=== PATIENT | female | born 1990 | race Two or more races ===

== ENCOUNTER → 2020-08-09 11:59 | Outpatient (BNVA) | payer OTHER, SELFPAY | PROVIDERS: Visit Provider Physician Assistant | DX: E66.9 Obesity, unspecified (principal); Z98.84 Bariatric surgery status | CPT/HCPCS: 99212 ==

== ENCOUNTER 2020-08-16 09:58 | Outpatient (REF) | payer OTHER, SELFPAY ==
[2020-08-16 11:19] LABS: MANUAL DIFF FLAG NO
[2020-08-16 11:33] LABS: Estimated Average Glucose 97 mg/dL
[2020-08-16 11:36] LABS: Basophils Percent Auto 0.7 % (0-2); Eosinophils Absolute Auto 0.1 X10*3/uL (0.0-0.4); Eosinophils Percent Auto 1.6 % (0-4); Hematocrit 38.9 % (37-47); Hemoglobin 12.7 g/dl (12.0-16.0); Imm Gran Abs Auto 0.01 X10*3/uL (0.00-0.03); Imm Gran Pct Auto 0.2 % (0.0-0.4); Lymphocytes Percent Auto 33.5 % (20-40); Mean Corpuscular HGB Conc 32.6 g/dl (31.0-35.0); Mean Corpuscular Hemoglobin 30.2 pg (27.0-33.0); Mean Corpuscular Volume 92.6 fL (80-98); Mean Platelet Volume 11.7 fL (9.4-12.3); Monocytes Absolute Auto 0.3 X10*3/uL (0.1-1.2); Monocytes Percent Auto 5.3 % (2-11); Neutrophils Absolute Auto 3.6 X10*3/uL (2.0-8.3); Neutrophils Percent Auto 58.7 % (45-73); Platelet Count 254 X10*3/uL (160-400); Red Cell Distribution Width 13.3 % (11.0-16.0); White Blood Count 6.1 X10*3/uL (4.8-10.8)
[2020-08-16 12:02] LABS: Alanine Aminotransferase 17 U/L (0-31); Albumin Level 4.4 g/dL (3.5-5.0); Alkaline Phosphatase 79 U/L (39-117); Anion Gap 11 (12-20); Aspartate Amino Transferase 13 U/L (5-31); Bilirubin Total 0.5 mg/dL (0.0-1.0); Blood Urea Nitrogen 12 mg/dL (9-16); Calcium 9.3 mg/dL (8.4-10.2); Carbon Dioxide 28 mmol/L (22-29); Chloride 107 mmol/L (96-108); Cholesterol 147 mg/dL; Estimated Glomerular Filt Rate > 60; Glucose Random 88 mg/dL (60-115); HDL Cholesterol 52 mg/dL; LDL Cholesterol Calculated 83 mg/dl; Sodium 142 mmol/L (135-145); Total Protein 7.1 g/dL (6.5-8.0); Triglycerides 63 mg/dL
[2020-08-16 12:08] LABS: Ferritin 45 ng/mL (10-122); TSH reflex Free T4 0.29 mIU/mL (0.32-4.0); Vitamin D 25-OH Total 9.8 ng/mL (>30)
[2020-08-16 12:15] LABS: Folate 6.4 ng/mL (> or = 4.0); Vitamin B12 573 pg/mL (200-900)
[2020-08-16 13:05] LABS: Free T4 (Free Thyroxine) 0.95 ng/dL (0.71-1.85)
[2020-08-17 06:17] LABS: Insulin Level Total 7.5 uIU/mL
[2020-08-17 17:21] LABS: Calcium (PTHI) 9.3 mg/dL (8.6-10.2); PTHI 73 pg/mL (14-64)
[2020-08-18 20:27] LABS: Zinc 76 mcg/dL (60-130)
[2020-08-20 11:47] LABS: Vitamin B1 16 nmol/L (8-30)
[2020-08-22 13:37] LABS: Vitamin A 48 mcg/dL (38-98)
== END 2020-08-16 09:59 | disposition home or self-care (01) ==
LOC: HO.LAB 09:58
PROVIDERS: Visit Provider Physician Assistant
DX: Z98.84 Bariatric surgery status (principal)
CPT/HCPCS: 36415; 80053; 80061; 82306; 82607; 82728; 82746; 83036; 83525; 83970; 84425; 84439; 84443; 84590; 84630; 85025; 86140

== ENCOUNTER → 2020-08-30 08:11 | Outpatient (BNVA) | payer OTHER, SELFPAY | PROVIDERS: Visit Provider Physician Assistant | DX: Z76.89 Persons encountering health services in other specified circumstances (principal) ==